=== PATIENT | female | born 1995 | race Caucasian/White ===

== ENCOUNTER → 2022-02-24 | Emergency (ER) | payer OTHER ==
[~2022-02-24] VITALS: Ht 149.9 cm; Wt 47.2 kg
[~2022-02-24] MED LIST: CEFUROXIME250 MG PO; PRENA1 TRUE CO1 EACH PO
== END | disposition home or self-care (01) ==
LOC: ER 10:08
DX: O26.891 Other specified pregnancy related conditions, first trimester (principal); Z3A.01 Less than 8 weeks gestation of pregnancy; R53.1 Weakness

== ENCOUNTER 2022-04-05 12:08 | Emergency (ER) | payer OTHER ==
[~2022-04-05] VITALS: Ht 149.9 cm; Wt 46.7 kg
== END 2022-04-05 19:54 | disposition home or self-care (01) ==
LOC: ER 12:08
DX: O21.9 Vomiting of pregnancy, unspecified (principal); Z3A.13 13 weeks gestation of pregnancy

== ENCOUNTER 2022-05-24 08:24 | Outpatient (CLI) | payer OTHER | END 2022-05-24 09:54 | disposition home or self-care (01) | LOC: PRENATAL 08:24 | PROVIDERS: ATTEND Obstetrics & Gynecology Maternal & Fetal Medicine | DX: O35.9XX0 Maternal care for (suspected) fetal abnormality and damage, unspecified, not applicable or unspecified (principal); O35.3XX0 Maternal care for (suspected) damage to fetus from viral disease in mother, not applicable or unspecified; O34.219 Maternal care for unspecified type scar from previous cesarean delivery; Z3A.19 19 weeks gestation of pregnancy ==

== ENCOUNTER 2022-09-11 14:52 | Outpatient (CLI) | payer OTHER | END 2022-09-11 18:36 | disposition home or self-care (01) | LOC: OBS/DEL 14:52 | PROVIDERS: ATTEND Obstetrics & Gynecology Obstetrics | DX: O99.013 Anemia complicating pregnancy, third trimester (principal); O26.893 Other specified pregnancy related conditions, third trimester; D64.89 Other specified anemias; Z3A.35 35 weeks gestation of pregnancy; Z20.822 Contact with and (suspected) exposure to COVID-19 ==